=== PATIENT | male | born 1985 | race Caucasian/White ===

== ENCOUNTER 2018-05-20 20:20 | Emergency (ER) | payer OTHER ==
[~2018-05-20] VITALS: Ht 180.3 cm; Wt 92.1 kg
[2018-05-20 20:29] VITALS: BP 133/69; Ht 180.3 cm; Wt 92.1 kg
== END 2018-05-20 22:38 | disposition home or self-care (01) ==
LOC: ED 20:20
DX: S40.011A Contusion of right shoulder, initial encounter (principal); S80.211A Abrasion, right knee, initial encounter; S40.211A Abrasion of right shoulder, initial encounter; V87.8XXA Person injured in other specified noncollision transport accidents involving motor vehicle (traffic), initial encounter; Y93.55 Activity, bike riding; Y92.413 State road as the place of occurrence of the external cause; Y99.8 Other external cause status